=== PATIENT | female | born 1995 | race Caucasian/White ===

== ENCOUNTER 2017-09-09 11:55 | Emergency (ER) | payer MEDICAID, OTHER ==
--- NOTE | 2017-09-09 12:28 | ED Physician Documentation ---
General Adult - HISTORIAN Historian: patient - HPI Chief Complaint: General Adult (ITP) Additional Information: Patient states that yesterday she developed some generalized joint and muscle pain. No precipitating factor. Patient has ITP and when the weather changes she has similar symptoms. Has been referred to a pain specialist but has not seen anyone yet. Has been seeing Alexandrea Moscoso in [facility] [place] for primary care. When she gets like this she will come to the ED and get pain medication and get started on prednisone. Timing: still present Severity: moderate Modifying Factors: none Context: weather chnges tend to precipitate Quality: achy Location: all joints - ROS CONST: denies: fever, chills EYES/ENT: none CVS/RESP: none. denies: chest pain, shortness of breath GI/: other (no hematuria). denies: abdominal pain NEURO/PSYCH: numbness - PAST HX Past History: none, other (IPT) Other History: none Surgeries/Procedures: , cholecystectomy, other (appendectomy) Immunizations: referred to PCP Allergies/Adverse Reactions: Allergies Allergy/AdvReac Type Severity Reaction Status Date / Time No Known Allergies Allergy Verified 09/09/17 12:28 Home Medications: Ambulatory Orders Medication Instructions Recorded NK [NK] 07/16/14 - SOCIAL HX Smoking History: non-smoker Alcohol Use: none Drug Use: none - FAMILY HX Family History: No - VITAL SIGNS Vital Signs: Vital Signs Temp Pulse Resp BP Pulse Ox 101/73 07/17/14 02:00 - REVIEWED ASSESSMENTS Nursing Assessment Reviewed: Yes Vitals Reviewed: Yes General Adult Physical Exam - PHYSICAL EXAM GENERAL APPEARANCE: mild distress EENT: eye inspection normal, ENT inspection normal, pharynx normal, no signs of dehydration, other (mucosa normal) NECK: normal inspection, thyroid normal, supple RESPIRATORY: no resp distress, chest non-tender, breath sounds normal. No: wheezes, rales, rhonchi CVS: reg rate & rhythm, heart sounds normal, equal pulses, no murmur, no gallop ABDOMEN: soft, no organomegaly SKIN: warm/dry, normal color, other (no petichil rash) EXTREMITIES: normal range of motion, tenderness (in joints, no swelling noted) NEURO: oriented X3, mood/affect nml, cognition normal Discharge Clincal Impression: Chronic ITP (idiopathic thrombocytopenia) Referrals: Primary Doctor,No [Primary Care Provider] - 2 Days Additional Instructions: Take tramdol as needed for pain along with acetaminophen (Tylenol). Follow-up with Alexandrea Moscoso for further evaluation and referrals for further treatment. If you have nay further problems to return to the ED as needed. Condition: Stable Disposition: 01 HOME, SELF-CARE Decision to Admit: NO Date of Decison to Admit: 09/09/17 Decision Time: 13:39
[2017-09-09] MEDS ORDERED: KETOROLAC TROMETHAMINE 60 MG/2 ML VIAL IM ONE (12:38)
[2017-09-09] MEDS ORDERED: methylPREDNISolone ACETATE 80 MG/ML VIAL IM ONE (12:38)
[2017-09-09 13:14] LABS: BASOPHILS % 0.3 (0.0-1.5); MEAN CORPUSCULAR HEMOGLOBIN 28.7 pg (28.0-34.0); MEAN CORPUSCULAR VOLUME 86.1 fl (80.0-100.0); MONOCYTES % 5.7 % (0.0-11.0); NEUTROPHILS # 3.6 # k/uL (1.4-7.7)
[2017-09-09 13:28] LABS: eGFR (African) > 60; eGFR (Non-African) > 60
[2017-09-09 14:10] VITALS: BP 112/72
== END 2017-09-09 13:45 | disposition home or self-care (01) ==
LOC: ED 11:55
DX: D69.3 Immune thrombocytopenic purpura (principal)
CPT/HCPCS: 80053; 85025; J1040; J1885; 96372; 99283